=== PATIENT | male | born 1950 | race Caucasian/White ===

== ENCOUNTER → 2023-04-18 06:30 | Outpatient (REF) | payer MEDICARE, SELFPAY | LOC: MRI 06:30 | PROVIDERS: ATTENDING PHYSICIAN Neurological Surgery; FAMILY PHYSICIAN Family Medicine | DX: G95.9 Disease of spinal cord, unspecified (principal) | CPT/HCPCS: 72141; 72146 ==

== ENCOUNTER → 2023-06-09 08:16 | Outpatient (REF) | payer MEDICARE, SELFPAY | LOC: RAD 08:16 | PROVIDERS: ATTENDING PHYSICIAN Neurological Surgery; FAMILY PHYSICIAN Family Medicine | DX: Z98.1 Arthrodesis status (principal) | CPT/HCPCS: 72100 ==

== ENCOUNTER → 2023-07-21 08:26 | Outpatient (REF) | payer MEDICARE, SELFPAY | LOC: REG 08:26 | PROVIDERS: ATTENDING PHYSICIAN Neurological Surgery; FAMILY PHYSICIAN Family Medicine | DX: Z98.1 Arthrodesis status (principal) | CPT/HCPCS: 72110 ==

== ENCOUNTER → 2024-03-06 13:29 | Outpatient (REF) | payer MEDICARE, SELFPAY | LOC: HWRAD 13:29 | PROVIDERS: ATTENDING PHYSICIAN Neurological Surgery; FAMILY PHYSICIAN Internal Medicine | DX: Z98.1 Arthrodesis status (principal); M54.16 Radiculopathy, lumbar region; M54.50 Low back pain, unspecified | CPT/HCPCS: 72110; 72131 ==

== ENCOUNTER 2024-04-30 06:18 | Day surgery (SDC) | payer MEDICARE, SELFPAY | END 2024-04-30 09:35 | disposition home or self-care (01) | LOC: GI 06:18 | PROVIDERS: ATTENDING PHYSICIAN Specialist | DX: Z12.11 Encounter for screening for malignant neoplasm of colon (principal); D12.3 Benign neoplasm of transverse colon; K57.30 Diverticulosis of large intestine without perforation or abscess without bleeding; Z86.0101 Personal history of adenomatous and serrated colon polyps; Z80.0 Family history of malignant neoplasm of digestive organs | CPT/HCPCS: 45385; 88305 ==

== ENCOUNTER 2025-01-30 13:08 | Inpatient (IN) | payer MEDICARE, SELFPAY ==
[2025-01-30 09:22] LABS: Hematocrit 43.8 % (39.0-52.0); Hemoglobin 14.7 g/dL (13.0-18.0); Mean Corp Hgb Conc. 33.6 g/dL (33.0-37.0); Mean Corpuscular Volume 102.3 fL (80.0-94.0); Nucleated Red Blood Cells % 0 % (-); Platelet Count 268 10^3/uL (130-400); Red Cell Dist. Width 13.2 % (11.5-14.5)
[2025-01-30 09:34] LABS: ALT (SGPT) 35 U/L (0-50); AST (SGOT) 36 U/L (17-59); Albumin 4.7 g/dl (3.5-5.0); Alkaline Phosphatase 73 U/L (38-126); Blood Urea Nitrogen 17 mg/dl (9-20); Calcium 9.7 mg/dl (8.4-10.2); Carbon Dioxide 29 mmol/L (22-30); Chloride 102 mmol/L (98-107); Glucose 134 mg/dl (70-99); Potassium 4.6 mmol/L (3.5-5.1); Sodium 137 mmol/L (135-145); Total Protein 7.6 g/dl (6.3-8.2); eGFR > 60.00
[2025-01-30] MEDS: NSS 1000 IV ×3 (09:34→22:25)
[2025-01-30] MEDS: DILAUDID 0.5 MG IV (09:35)
[2025-01-30] MEDS: ZOFRAN 4 MG IV (09:35)
--- NOTE | 2025-01-30 09:37 | ED.GENMED ---
History of Present Illness
<Caterina Acevedo MD, Resident - Last Filed: 01/30/25 10:20>
General
Chief Complaint: Abdominal Pain
Source: patient
Time Seen by Provider: 01/30/25 09:05
History of Present Illness
History of Present Illness:
Patient is a 74-year-old male with past medical history of recurrent pancreatitis, alcohol use, hypertension, hyperlipidemia, depression, gout, who is here for evaluation of right upper quadrant pain.
He was in [place] 2 weeks ago, and was admitted to [facility] for acute pancreatitis, kept overnight and then discharge. Patient started on low-fat diet, exercise and abstain from alcohol for last 2 weeks. He did not have any further symptoms till
today. This morning around 530 to 6 AM he was in severe pain rating about 8/10, constant with intermittent sharp bouts, associated with nausea and ended up throwing up. He had couple of episodes of vomiting and he noticed bile. He reports losing
about 5 pounds over the last 2 weeks. Denies any fever, chills, chest pain, shortness of breath, irregular bowel habits, seizures, tremors.
His last drink was about 2 weeks ago, he feels fine without any tremulousness, seizures or delirium.
Past History
<Caterina Acevedo MD, Resident - Last Filed: 01/30/25 10:20>
Past History
ED Past Medical History: HTN, Psychiatric (Depression) and Other (Pancreatitis)
ED Past Surgical History: Other ([place] teeth, colonoscopy)
Social History
Tobacco: Non-smoker
Alcohol: None
Drug: None
Personal:
Living: with family
Employment: Employed
Family History
Family History: Hypertension
Review of Systems
<Caterina Acevedo MD, Resident - Last Filed: 01/30/25 10:20>
Review of Systems
All Other Systems: ROS reviewed and negative except as documented in HPI and ROS
Phy Exam
<Caterina Acevedo MD, Resident - Last Filed: 01/30/25 10:20>
General Physical Exam
General Presentation: well appearing and no apparent distress
General age: appears stated age
Cardiovascular Exam
Cardiovascular Exam: regular rate/rhythm, no edema, no gallop, no murmur and normal peripheral pulses
Pulmonary Exam
Pulmonary Exam: lungs clear, no respiratory distress and no rales
Gastrointestinal Exam
Gastrointestinal Exam: normal bowel sounds, soft and tender (In epigastric and right upper quadrant region)
Neurological Exam
Neurological Exam: alert and oriented x3
Musculoskeletal Exam
Musculoskeletal Exam: full ROM
Skin Exam
Skin Exam: normal color and warm/dry
Psychiatric Exam
Psychiatric Exam: normal mood/affect
Course
<Caterina Acevedo MD, Resident - Last Filed: 01/30/25 10:20>
Orders/Labs/Results
Orders:
Orders
01/30/25 09:11
Complete Blood Count/With Diff Urgent
Comprehensive Metabolic Panel Urgent
Lipase Urgent
01/30/25 09:30
US Abdomen Complete/Upper Urgent
Reason For Exam: RUQ pain
01/30/25 09:31
0.9% Sodium Chloride 1000 ml [Nss] 1,000 ml IV BOLUS
Ondansetron Injectable [Zofran] 4 mg IV NOW ONE
01/30/25 09:32
HYDROmorphone [Dilaudid] 0.5 mg IV NOW ONE
01/30/25 Lunch
NPO
Allow oral meds: No
Allow clear liquids: No
01/30/25 10:38
HYDROmorphone [Dilaudid] 1 mg IV NOW STA
Abnormal Lab Results
01/30/25
09:11
WBC 11.7 H 10^3/uL
(4.8-10.8)
RBC 4.28 L 10^6/uL
(4.70-6.10)
MCV 102.3 H fL
(80.0-94.0)
MCH 34.3 H pg
(27.0-31.0)
Absolute Neuts (auto) 8.7 H 10^3/uL
(1.4-6.5)
Absolute Monos (auto) 0.7 H 10^3/uL
(0.1-0.6)
Lymphocytes % 17.0 L %
(20.5-51.1)
Glucose 134 H mg/dl
(70-99)
Lipase > 4000 H* U/L
(23-300)
01/30/25 09:11
01/30/25 09:11
Vital Signs
Initial and Last Documented VS:
Initial Vital Signs
Temp Pulse Resp BP Pulse Ox
97.8 F 92 16 163/93 92
01/30/25 08:30 01/30/25 08:30 01/30/25 08:30 01/30/25 08:30 01/30/25 08:30
Last Documented Vital Signs
Temp Pulse Resp BP Pulse Ox
97.8 F 92 16 163/93 92
01/30/25 08:30 01/30/25 08:30 01/30/25 08:30 01/30/25 08:30 01/30/25 09:39
<Darshan Harrison, DO - Last Filed: 01/30/25 10:40>
Orders/Labs/Results
Orders:
Orders
01/30/25 09:11
Complete Blood Count/With Diff Urgent
Comprehensive Metabolic Panel Urgent
Lipase Urgent
01/30/25 09:30
US Abdomen Complete/Upper Urgent
Reason For Exam: RUQ pain
01/30/25 09:31
0.9% Sodium Chloride 1000 ml [Nss] 1,000 ml IV BOLUS
Ondansetron Injectable [Zofran] 4 mg IV NOW ONE
01/30/25 09:32
HYDROmorphone [Dilaudid] 0.5 mg IV NOW ONE
01/30/25 Lunch
NPO
Allow oral meds: No
Allow clear liquids: No
01/30/25 10:38
HYDROmorphone [Dilaudid] 1 mg IV NOW STA
Abnormal Lab Results
01/30/25
09:11
WBC 11.7 H 10^3/uL
(4.8-10.8)
RBC 4.28 L 10^6/uL
(4.70-6.10)
MCV 102.3 H fL
(80.0-94.0)
MCH 34.3 H pg
(27.0-31.0)
Absolute Neuts (auto) 8.7 H 10^3/uL
(1.4-6.5)
Absolute Monos (auto) 0.7 H 10^3/uL
(0.1-0.6)
Lymphocytes % 17.0 L %
(20.5-51.1)
Glucose 134 H mg/dl
(70-99)
Lipase > 4000 H* U/L
(23-300)
01/30/25 09:11
01/30/25 09:11
Vital Signs
Initial and Last Documented VS:
Initial Vital Signs
Temp Pulse Resp BP Pulse Ox
97.8 F 92 16 163/93 92
01/30/25 08:30 01/30/25 08:30 01/30/25 08:30 01/30/25 08:30 01/30/25 08:30
Last Documented Vital Signs
Temp Pulse Resp BP Pulse Ox
97.8 F 92 16 163/93 92
01/30/25 08:30 01/30/25 08:30 01/30/25 08:30 01/30/25 08:30 01/30/25 09:39
<Caterina Acevedo MD, Resident - Last Filed: 01/30/25 10:20>
MDM/Problems Addressed
Differential Diagnosis Includes:
Acute pancreatitis
Cholecystitis/cholelithiasis
Gastritis/GERD
Aortic dissection
Renal colic
MDM/Problems Addressed:
Given the patient is vitally stable and reports no tearing chest pain, less likely aortic dissection.
Recently discharged from [facility], after being diagnosed with acute pancreatitis, kept overnight, patient currently managing himself with low-fat diet, abstaining alcohol and exercise. High suspicion for recurrence of acute pancreatitis, lipase
checked greater than 4000, would admit for management of acute pancreatitis
Liver enzymes normal
Blood counts normal
Liver function normal
Would admit on hospitalist service for management of acute pancreatitis
<Caterina Acevedo MD, Resident - Last Filed: 01/30/25 10:20>
*Pulse Oximetry
SaO2: 92
Oxygen Mode of Delivery: Room air
Patient hypoxic: no
*Critical Care Note
Total Time (30-74mins, 75-104mins- exclusive of procedures): Not Applicable
ED Attending Note
<Caterina Acevedo MD, Resident - Last Filed: 01/30/25 10:20>
-
Portions of this chart may have been created with voice recognition software.� Occasional wrong word or��sound alike� substitutions may have occurred due to the inherent limitations of voice recognition software.
<Darshan Harrison, DO - Last Filed: 01/30/25 10:40>
ED Attending Note
Patient seen and examined by attending physician: Yes
I performed a history and physical exam of patient and discussed management with resident, I reviewed resident's note and agree with documented findings and plan of care.: Yes
ED Attending Note:
Seen with resident examined independently
74-year-old male drinker recurrent pancreatitis was in [place] recently with a spell after Thanksgiving
Labs noted no jaundice will require admission
Discharge Plan
Departure
Patient Disposition: Admit
Date of Disposition: 01/30/25
Time of Disposition: 10:19
Presentation/result/management discussed w/ accepting MD/DO: Hospitalist
Discharge Problem:
Acute pancreatitis
Prescriptions:
No Action
hydrochlorothiazide 25 MG tablet
25 mg PO DAILY
venlafaxine [Effexor XR] 37.5 MG capsule,extended release 24hr
37.5 mg PO DAILY
verapamil 240 MG tablet extended release
240 mg PO DAILY
fluticasone propionate 1 SPRAY spray,suspension
2 spray intranasal BIDPRN PRN (Reason: allergies)
omeprazole magnesium [Prilosec OTC] 20 MG tablet,delayed release (DR/EC)
20 mg PO DAILY
atorvastatin 20 MG tablet
20 mg PO DAILY
valsartan [Diovan] 320 MG tablet
320 mg PO DAILY
potassium chloride [Klor-Con M20] 20 MEQ tablet,ER particles/crystals
20 meq PO BID Qty: 60 0RF
Referrals:
Asim Samaniego MD [Family Provider, Internal Medicine]
Interventions
Interventions:
*Risk Screen - Suicide Last Done: 01/30/25 08:30
*General Assessment Last Done: 01/30/25 08:30
*Neglect/Abuse Screening Last Done: 01/30/25 08:30
QJ-Uepbuj-Aeysnfkqvc Assessment Last Done: 01/30/25 09:21
Discharge Date and Time
Print Language: SWEDISH
[2025-01-30 09:57] LABS: Lipase > 4000 U/L (23-300)
--- NOTE | 2025-01-30 10:34 | HPS.HSE ---
Family Physician
-
Family Physician: Asim Samaniego MD
Chief Complaint
-
Abd pain
History of Present Illness
74M recurrent pancreatitis ETOH use HTN HLD Depression Gout here for severe abd pain starting in AM. Lipase >4000. Likely pancreatitis. Patient was recently hospitalized for similar issue 2 weeks ago. Since discharge patient endorses abstaining
from Etoh and compliance with low fat diet. Denies strenuous activity beyond his regular exercise. Reports symptom free until this morning. Denies nausea vomiting constipation diarrhea. Abd US noted severe fatty liver disease but otherwise no
sonographic evidence cholelithiasis or biliary obstruction.
Medical History
Past Medical History
Past Medical History: Reports Other (as above)
Past Surgical History: Reports Other (as above)
Social History
Tobacco: Non-smoker
Alcohol: Former (reports abstaining from ETOH since hospitalization 2 weeks ago)
Drug: None
Personal:
Living: With Family
Family History
Family History: Not pertinent (reviewed)
Allergies / Home Medications
Allergies reflects when Allergies were last updated in [employer].
Home Medications with original date entered in [employer]
Allergy/Medication List:
Allergies
Allergy/AdvReac Type Severity Reaction Status Date / Time
Sulfa (Sulfonamide Allergy hives & Verified 01/30/25 08:30
Antibiotics) itching
dust, mites, grass, pollen Allergy Unknown Uncoded 01/30/25 08:30
pet dand
Home Medications
atorvastatin 20 mg tablet 20 mg PO DAILY 06/07/16
fluticasone propionate 50 mcg/actuation nasal spray,suspension 2 spray intranasal BIDPRN PRN allergies 06/07/16
venlafaxine 37.5 mg capsule,extended release 24 hr (Effexor XR) 37.5 mg PO DAILY 06/07/16
verapamil 240 mg tablet,extended release 240 mg PO DAILY 06/07/16
acetaminophen 325 mg tablet 650 mg PO Q4H PRN mild pain 01/30/25
allopurinol 300 mg tablet 300 mg PO DAILY 01/30/25
cholecalciferol (vitamin D3) 25 mcg (1,000 unit) tablet (Vitamin D3) 25 mcg PO DAILY 01/30/25
olmesartan 40 mg tablet 40 mg PO DAILY 01/30/25
omega 1-cjy-aur-fish oil 1,000 mg (120 mg-180 mg) capsule (Fish Oil) 1 cap PO DAILY 01/30/25
therapeutic multivitamin 1 tab PO DAILY 01/30/25
Review of Systems
-
A 12 point ROS was completed and negative except as noted: Yes
Constitutional: Reports Other (as below)
Physical Exam
Vital Signs
Vital Signs
Temp Pulse Resp BP Pulse Ox
97.8 F 92 16 163/93 92
01/30/25 08:30 01/30/25 08:30 01/30/25 08:30 01/30/25 08:30 01/30/25 09:39
Physical Exam
General: Other (as below)
Laboratory Results
-
01/30/25 09:11
01/30/25 09:11
Laboratory Results
Total Bilirubin 0.5 mg/dl (0.2-1.3) 01/30/25 09:11
AST 36 U/L (17-59) 01/30/25 09:11
ALT 35 U/L (0-50) 01/30/25 09:11
Alkaline Phosphatase 73 U/L (38-126) 01/30/25 09:11
Lipase > 4000 U/L (23-300) H* 01/30/25 09:11
Impression/Plan
-
ROS
General: Denies fever chills night sweats unexpected weight loss
Neuro: Denies seizure shaking loss of consciousness dizziness vertigo
Psych: denies depression hallucinations confusion manic episodes
Endocrine: Denies polyuria polydipsia polyphagia heat/cold intolerance
HEENT: Denies blindness visual disturbances epistaxis
Pulmonary: denies coughing hemoptysis sneezing sob dyspnea on exertion
Cardiovascular: denies chest pain palpitations leg swelling
Hematology: denies signs symptoms of anemia easy bruising/bleeding
Gastrointestinal: reports severe abdomen pain denies nausea vomiting diarrhea constipation hematemesis hematochezia melena
Genito-Urinary: denies retention incontinence dysuria
Musculoskeletal: denies joint pain weakness
Dermatology: denies rash laceration bruising
Physical Exam
General: No pallor, cyanosis, or jaundice.
HEENT: Throat clear. PERRLA Normocephalic atraumatic
NECK: Supple. No JVD Carotid Bruits
RESPIRATORY: Lungs clear to auscultation. No crackles wheezes stridor
CVS: S1, S2 normal. RRR. No murmur, rub or gallop.
ABDOMEN: Soft, epigastric tenderness. No rebound tenderness. No distension. decreased bowel sounds
EXTREMITIES: No peripheral cyanosis or edema.
INTERCHANGE AGENT: AOx3. No focal deficits.
IMPRESSION:
74M recurrent pancreatitis ETOH use HTN HLD Depression Gout here for severe abd pain starting in AM. Lipase >4000. Likely pancreatitis. Patient was recently hospitalized for similar issue 2 weeks ago. Since discharge patient endorses abstaining
from Etoh and compliance with low fat diet. Denies strenuous activity beyond his regular exercise. Reports symptom free until this morning. Denies nausea vomiting constipation diarrhea. Abd US noted severe fatty liver disease but otherwise no
sonographic evidence cholelithiasis or biliary obstruction.
PLAN:
#Recurrent Pancreatitis
#Hx ETOH use (endorses abstaining since last hospitalization 2 wks ago)
Medsurg admit
IVF hydration 120 cc/h NS
trend Lipase
pain control prn Tylenol, prn Diaudid mod severe pain
NPO except meds, sips of clears, ice chips
GI eval
#HTN
Cont Olmesartan Verapamil with holding parameters
#HLD
cont Statin
#Depression
cont Effexor
#Gout
cont Allopurinol
DVT ppx Lovenox
Full Code
Discussed with patient and patient's Naida
I spent a total of 76 minutes with the patient or on the floor. More than 50% of this time involved counseling and coordination of care.
[2025-01-30] MEDS: DILAUDID 1 MG IV ×3 (10:52→19:49)
--- NOTE | 2025-01-30 15:33 | PTCARENOTE ---
Received pt from ER via stretcher, accompanied by ER staff. Pt AAO x3, BRIGHT well, ambulatory to bed without assistance;d enies weakness/dizziness. VSS. On room air- pulse ox 100%, no SOB noted. Abd large, rounded, pt c/o shapr mid-upper abd [place];
denies nausea. Pt to be NPO except for meds/sips clears/ice chips. Temp 99.1 PO; skin W/D/I. IVF's NSS @ 120 ml/hr started via Rt AC site; currently infusing well without sx of infiltration. resting in bed at present; at bedside. Will
continue to monitor.
--- NOTE | 2025-01-30 16:12 | CON.GI ---
Consultation
-
Date/Time Consultation Requested: 01-30-25
Date/Time Consultation Performed: 01-30-25
Requesting Provider: Dr. Stephenie Burrell
Performing Provider: Dr. Anna Woodall
Reason for Consultation: Pancreatitis
Medical History
Chief Complaint / HPI
Chief Complaint: Pancreatitis
History of Present Illness:
Pino Torrez, 74-year-old with medical history significant for recurrent pancreatitis and frequent alcohol use, was admitted to [facility] on 01-30-25 with acute pancreatitis. He has a history of recurrent pancreatitis with multiple admissions, starting
from the 1970s. He was admitted to [facility] for acute pancreatitis around 2 weeks ago, and was discharged home a day later on his request as he wanted to return to [place]. Leading up to that, he was drinking slightly more than usual - about
half a bottle of red wine 4 days a week. He has been abstaining from alcohol completely since he was discharged home 2 weeks ago, and had been mostly asymptomatic (outside of infrequent mild abdominal pain) until today when he developed abdominal
pain, nausea, vomiting and inability to tolerate solids or liquids. WBC 11.7 and lipase >4000 on admission.
Past Medical History
Past Medical History: Other (recurrent pancreatitis; history of almost daily alcohol use; hypertension, hyperlipidemia; gout)
Social History
Tobacco: Non-Smoker
Alcohol: Former (quit 02/12)
Drug: None
Living: With Family
Family History
Family History: Reviewed & Not Pertinent
Allergies / Home Medications
Allergy/AdvReac Type Severity Reaction Status Date / Time
Sulfa (Sulfonamide Allergy hives & Verified 01/30/25 08:30
Antibiotics) itching
dust, mites, grass, pollen Allergy Unknown Uncoded 01/30/25 14:39
pet dand
�Medication �Instructions �Recorded
atorvastatin 20 mg tablet 20 mg PO DAILY 06/07/16
fluticasone propionate 50 2 spray intranasal BIDPRN PRN 06/07/16
mcg/actuation nasal allergies
spray,suspension
venlafaxine 37.5 mg 37.5 mg PO DAILY 06/07/16
capsule,extended release 24 hr
(Effexor XR)
verapamil 240 mg tablet,extended 240 mg PO DAILY 06/07/16
release
acetaminophen 325 mg tablet 650 mg PO Q4H PRN mild pain 01/30/25
allopurinol 300 mg tablet 300 mg PO DAILY 01/30/25
cholecalciferol (vitamin D3) 25 25 mcg PO DAILY 01/30/25
mcg (1,000 unit) tablet (Vitamin
D3)
olmesartan 40 mg tablet 40 mg PO DAILY 01/30/25
omega 7-hsz-juj-fish oil 1,000 mg 1 cap PO DAILY 01/30/25
(120 mg-180 mg) capsule (Fish Oil)
therapeutic multivitamin 1 tab PO DAILY 01/30/25
Review of Systems
-
All other systems: A 12 pt ROS was Negative except as stated above in HPI
Vital Signs
Temp Pulse Resp BP Pulse Ox
98.6 F 61 18 112/54 95
01/30/25 15:53 01/30/25 15:53 01/30/25 15:53 01/30/25 15:53 01/30/25 15:53
Physical Exam
Exam
General: No Apparent Distress and Comfortable
HEENT: Normocephalic, Anicteric and Atraumatic
Respiratory: Clear and Non Labored Respirations
Cardiac: S1/S2 and Regular Rhythm; Negative Murmur or Rub
GI: Soft, Non Distended and Tender (epigastric/LUQ)
Genito-urinary: No Costovertebral Tender
Musculoskeletal: No Clubbing, No Cyanosis and No Edema
Neuro: Awake, Alert, Oriented and No Motor Deficits
Psych: Calm
Results
WBC 11.7 10^3/uL (4.8-10.8) H 01/30/25 09:11
Hgb 14.7 g/dL (13.0-18.0) 01/30/25 09:11
Hct 43.8 % (39.0-52.0) 01/30/25 09:11
MCV 102.3 fL (80.0-94.0) H 01/30/25 09:11
Plt Count 268 10^3/uL (130-400) 01/30/25 09:11
Absolute Neuts (auto) 8.7 10^3/uL (1.4-6.5) H 01/30/25 09:11
Sodium 137 mmol/L (135-145) 01/30/25 09:11
Potassium 4.6 mmol/L (3.5-5.1) 01/30/25 09:11
Chloride 102 mmol/L (98-107) 01/30/25 09:11
Carbon Dioxide 29 mmol/L (22-30) 01/30/25 09:11
BUN 17 mg/dl (9-20) 01/30/25 09:11
Creatinine 1.1 mg/dL (0.7-1.3) 01/30/25 09:11
Calcium 9.7 mg/dl (8.4-10.2) 01/30/25 09:11
Total Bilirubin 0.5 mg/dl (0.2-1.3) 01/30/25 09:11
AST 36 U/L (17-59) 01/30/25 09:11
ALT 35 U/L (0-50) 01/30/25 09:11
Alkaline Phosphatase 73 U/L (38-126) 01/30/25 09:11
Lipase > 4000 U/L (23-300) H* 01/30/25 09:11
Diagnostic Image Results:
06-07-16: CT AP:
1: Pancreatitis. Moderate to severe inflammatory enlargement of the pancreas and lillie-pancreas retroperitoneal inflammation and effusion. No walled off fluid collection
2. No other acute disease in the abdomen
3. Chronic: No radiopaque biliary stones. Mild fatty infiltration of the liver. Severe aortoiliac atherosclerotic calcification
01-30-25: US Abdomen:
1. Severely increased echogenicity throughout the liver consistent with severe diffuse liver disease (probably SEVERE DIFFUSE HEPATIC STEATOSIS).
2. No sonographic evidence for cholelithiasis or biliary obstruction.
3. Severe calcific atherosclerotic plaque in the abdominal aorta.
Prior GI Procedures:
Colonoscopy:
04-30-24: - One 3 mm polyp in the transverse colon, removed with
a cold snare. Resected and retrieved.
- Diverticulosis in the sigmoid colon and in the
descending colon.
Assessment / Plan
-
Pino Torrez, 74-year-old with medical history significant for recurrent pancreatitis and frequent alcohol use, was admitted to [facility] on 01-30-25 with acute pancreatitis. He has a history of recurrent pancreatitis with multiple admissions, starting
from the 1970s. He was admitted to [facility] for acute pancreatitis around 2 weeks ago, and was discharged home a day later on his request as he wanted to return to [place]. Leading up to that, he was drinking slightly more than usual - about
half a bottle of red wine 4 days a week. He has been abstaining from alcohol completely since he was discharged home 2 weeks ago, and had been mostly asymptomatic (outside of infrequent mild abdominal pain) until today when he developed abdominal
pain, nausea, vomiting and inability to tolerate solids or liquids. WBC 11.7 and lipase >4000 on admission.
Impression:
* Acute pancreatitis, history of recurrent pancreatitis
* History of alcohol use, abstaining since 02/12
* Hypertension
* Hyperlipidemia
* Depression
* Gout
Recommendations:
- Suspect pancreatitis secondary to chronic almost daily alcohol use.
- Advance diet as tolerated; can transition to oral intake; IV hydration if not tolerating.
- Check MRCP.
- Check IgG subclass 1-4, triglycerides, CRP.
- Analgesics and antiemetics as needed.
-
-
Thank you for consultation and allowing me to participate in the patient's care. Please call the telephone operator chief GI physician during the after hours with any questions or concerns.
[2025-01-30 17:50] LABS: C-Reactive Protein < 5.00 mg/L (0.0-10.00)
[2025-01-30] MEDS: LOVENOX 40 MG SC (17:51)
[2025-01-30] MEDS: TYLENOL 650 MG PO (22:32)
[2025-01-31] MEDS: DILAUDID 1 MG IV ×2 (00:21→13:10)
[2025-01-31] MEDS: ZOFRAN 4 MG IV (00:21)
[2025-01-31] MEDS: TYLENOL 650 MG PO ×2 (03:39→23:40)
[2025-01-31] MEDS: DILAUDID 0.5 MG IV ×3 (04:41→18:36)
[2025-01-31] MEDS: NSS 1000 IV ×2 (06:17→17:28)
--- NOTE | 2025-01-31 07:47 | W.PN.HOSP.TC ---
Today's Communication/Plan
-
IVF
clear liquid diet
pain control
Assessment / Plan
Assessment / Plan
Physical Exam
General: No pallor, cyanosis, or jaundice.
HEENT: Throat clear. PERRLA Normocephalic atraumatic
NECK: Supple. No JVD Carotid Bruits
RESPIRATORY: Lungs clear to auscultation. No crackles wheezes stridor
CVS: S1, S2 normal. RRR. No murmur, rub or gallop.
ABDOMEN: Soft, epigastric tenderness. No rebound tenderness. No distension. decreased bowel sounds
EXTREMITIES: No peripheral cyanosis or edema.
EPIC CUPID ANALYST: AOx3. No focal deficits.
IMPRESSION:
74M recurrent pancreatitis ETOH use HTN HLD Depression Gout here for severe abd pain starting in AM. Lipase >4000. Likely pancreatitis. Patient was recently hospitalized for similar issue 2 weeks ago. Since discharge patient endorses abstaining
from Etoh and compliance with low fat diet. Denies strenuous activity beyond his regular exercise. Reports symptom free until this morning. Denies nausea vomiting constipation diarrhea. Abd US noted severe fatty liver disease but otherwise no
sonographic evidence cholelithiasis or biliary obstruction.
PLAN:
#Recurrent Pancreatitis
#Hx ETOH use (endorses abstaining since last hospitalization 2 wks ago)
Medsurg admit
IVF hydration 120 cc/h NS
trend Lipase
pain control prn Tylenol, prn Diaudid mod severe pain
GI eval appreciated
Clear Liquid Diet
MRI/MRCP appreciated acute interstitial edematous pancreatitis, pancreatic divisum, no cholelithiasis or choledocholithiasis, severe hepatic steatosis
#HTN
Cont Cozaar (substituted for home Olmesartan while in hospital) Verapamil with holding parameters
#HLD
cont Statin
#Depression
cont Effexor
#Gout
cont Allopurinol
DVT ppx Lovenox
Full Code
Discussed with patient and patient's Naida
I spent a total of 45 minutes with the patient or on the floor. More than 50% of this time involved counseling and coordination of care.
Anticipated Discharge: 24 - 48 hours
Subjective/Interval History
-
Date of Service: January 31, 2025
no acute distress, resting comfortably in bed, reports improvement in pain/appetite. Naida present during evaluation.
Objective Data
-
Labs:
Laboratory Results
01/31/25
06:00
WBC Pending
Hgb Pending
Hct Pending
Plt Count Pending
Sodium Pending
Potassium Pending
Chloride Pending
Carbon Dioxide Pending
BUN Pending
Creatinine Pending
Glucose Pending
Calcium Pending
Total Bilirubin Pending
AST Pending
ALT Pending
Alkaline Phosphatase Pending
Vital Signs:
Vital Signs
Temp Pulse Resp BP Pulse Ox
97.4 F 74 15 138/61 96
01/30/25 23:38 01/30/25 23:38 01/30/25 23:38 01/30/25 23:38 01/30/25 23:38
I&O
01/30/25 01/31/25 02/01/25
06:59 06:59 06:59
Intake Total 2360 / 2360
Balance 2360 / 2360
[2025-01-31] MEDS: NSS (PRESERVATIVE FREE) 10 ML IV (08:54)
[2025-01-31] MEDS: PROTONIX IV 40 MG IV (08:54)
[2025-01-31] MEDS: VITAMIN D3 (cholecalciferol) 25 MCG PO (08:55)
[2025-01-31] MEDS: COZAAR 100 MG PO (08:55)
[2025-01-31] MEDS: CALAN EXTENDED RELEASE 240 MG PO (08:55)
[2025-01-31] MEDS: LIPITOR 20 MG PO (08:56)
[2025-01-31] MEDS: THERAGRAN 1 TABLET PO (08:56)
[2025-01-31] MEDS: EFFEXOR XR 37.5 MG PO (08:56)
[2025-01-31] MEDS: ZYLOPRIM 300 MG PO (08:58)
--- NOTE | 2025-01-31 09:51 | W.PN.GI.CBS2 ---
Today's Communication / Plan
-
Clinically improving, advance diet as tolerated. MRCP pending. OP f/u with Dr. Lauren. Etoh abstinence. GI will sign off, please call with questions
Assessment / Plan
-
Pino Torrez is a 74 y.o. male with pmhx HTN, HLD, depression, gout, recurrent pancreatitis admitted with pancreatitis. Reports waiting up early this morning with severe abdominal pain, epigastric in nature with associated nausea and bilious
nonbloody emesis. He states he was last hospitalized in [place] 2 weeks ago with acute pancreatitis, discharged after 1 day. His first episode of AP was in his 20s, approximates a total of 8 episodes in his lifetime, states no clear etiology of his
pancreatitis has ever been found. He believes the last MRI of his abdomen was about 8 years ago. He is a former tobacco smoker, 45 pack years, quit at age 61. He does to regular etoh use, typically1/2 bottle of wine about 4 days per week. He admits
to slightly more consumption prior to recent bouts of pancreatitis.No recent change in medications, antibiotics, GLPs.
Lipase >4000
Tbili 0.5, AST 36, ALT 35, Alk phos 73
BUN 17
Hgb 14.7, MCV 102.3, Plt 268
Abdominal ultrasound: Severely increased echogenicity throughout the liver consistent with severe diffuse hepatic steatosis. No sonographic evidence of cholelithiasis or biliary obstruction. The CBD measures 3.8 mm. Severe calcific
atherosclerotic plaque in the abdominal aorta. Patent hepatic vasculature The pancreas is incompletely visualized, the pancreatic duct measures 3.4 mm in diameter.
#Recurrent Pancreatitis, suspect etoh-pancreatitis
-He does drink etoh daily, not excessive but regular use, so this could be culprit, no evidence of chronic panc on imaging
-Currently getting NS @ 120 cc/hr, monitor BUN closely; d/c fluids once tolerating diet
-analgesia, antiemetics prn
-PPI
-tolerating clears, advance as tolerated
-MRI/MRCP pending
-triglycerides, IgG4 pending
Continue medical management for treatment of acute pancreatitis, overall, he is improving. MRI for completeness. Advance diet as tolerated. Recommend abstaining for etoh completely moving forward. He can f/u in office with Dr. Lauren, can discuss if
additional workup for his recurrent pancreatitis is necessary. GI will sign off, will f/u on MRI results. Please call with questions.
Subjective
Subjective
Date of Service: January 31, 2025
Patient all improved on exam today. MRI pending. On further eval, he admits to heavy drinking, a bottle of wine daily for about 2 years, cut back a few years ago to half a bottle of wine 4 to 7 days/week. Suspect this is the etiology of his
pancreatitis, he agrees this is certainly a possibility.
Objective
Data Reviewed
Laboratory Data:
Laboratory Results
Total Bilirubin 0.5 mg/dl (0.2-1.3) 01/30/25 09:11
AST 36 U/L (17-59) 01/30/25 09:11
ALT 35 U/L (0-50) 01/30/25 09:11
Alkaline Phosphatase 73 U/L (38-126) 01/30/25 09:11
Lipase > 4000 U/L (23-300) H* 01/30/25 09:11
Vital Signs and I&O:
Vital Signs
Temp Pulse Resp BP Pulse Ox
98.6 F 72 18 113/56 96
01/31/25 07:40 01/31/25 08:55 01/31/25 07:40 01/31/25 08:55 01/31/25 07:40
I&O
01/30/25 01/31/25 02/01/25
06:59 06:59 06:59
Intake Total 2360 / 2360
Balance 2360 / 2360
Physical Exam
Physical Exam
HEENT: Anicteric and Moist mucous membranes
GI: Soft, Non Distended and Tender (minimal TTP in epigastrium, no rebound or guarding)
[2025-01-31 09:52] LABS: Hematocrit 35.3 % (39.0-52.0); Hemoglobin 11.9 g/dL (13.0-18.0); Mean Corp Hgb Conc. 33.7 g/dL (33.0-37.0); Mean Corpuscular Volume 104.1 fL (80.0-94.0); Nucleated Red Blood Cells % 0 % (-); Platelet Count 201 10^3/uL (130-400); Red Cell Dist. Width 13.3 % (11.5-14.5)
[2025-01-31 10:15] LABS: ALT (SGPT) 24 U/L (0-50); AST (SGOT) 26 U/L (17-59); Albumin 3.5 g/dl (3.5-5.0); Alkaline Phosphatase 60 U/L (38-126); Blood Urea Nitrogen 13 mg/dl (9-20); Calcium 8.4 mg/dl (8.4-10.2); Carbon Dioxide 26 mmol/L (22-30); Chloride 104 mmol/L (98-107); Estimated Creatinine Clearance 74 ml/min; Glucose 93 mg/dl (70-99); Magnesium 2.0 mg/dl (1.6-2.3); Potassium 3.8 mmol/L (3.5-5.1); Sodium 134 mmol/L (135-145); Total Protein 5.8 g/dl (6.3-8.2); Triglycerides 129 mg/dl (10-149); eGFR > 60.00
[2025-01-31 12:04] LABS: Hepatitis C Antibody Negative (Negative)
[2025-01-31 13:36] LABS: Lipase > 4000 U/L (23-300)
[2025-01-31] MEDS: LOVENOX 40 MG SC (17:27)
[2025-02-01] MEDS: NSS 1000 IV ×2 (01:37→09:35)
--- NOTE | 2025-02-01 07:19 | W.PN.HOSP.TC ---
Today's Communication/Plan
-
Ok to discharge if tolerates low fat dinner
Assessment / Plan
Assessment / Plan
Physical Exam
General: No pallor, cyanosis, or jaundice.
HEENT: Throat clear. PERRLA Normocephalic atraumatic
NECK: Supple. No JVD Carotid Bruits
RESPIRATORY: Lungs clear to auscultation. No crackles wheezes stridor
CVS: S1, S2 normal. RRR. No murmur, rub or gallop.
ABDOMEN: Soft, epigastric tenderness significantly improved. No rebound tenderness. No distension. decreased bowel sounds
EXTREMITIES: No peripheral cyanosis or edema.
FUNERAL PROFESSIONAL: AOx3 conversant coherent
Psych: Calm
IMPRESSION:
74M recurrent pancreatitis ETOH use HTN HLD Depression Gout here for severe abd pain starting in AM. Lipase >4000. Likely pancreatitis. Patient was recently hospitalized for similar issue 2 weeks ago. Since discharge patient endorses abstaining
from Etoh and compliance with low fat diet. Denies strenuous activity beyond his regular exercise. Reports symptom free until this morning. Denies nausea vomiting constipation diarrhea. Abd US noted severe fatty liver disease but otherwise no
sonographic evidence cholelithiasis or biliary obstruction.
PLAN:
#Recurrent Pancreatitis
#Hx ETOH use (endorses abstaining since last hospitalization 2 wks ago)
Medsurg admit
Lipase trended down <1000
IVF hydration 120 cc/h NS completed
pain significantly improved, no longer requiring Dilaudid, manageable w/ Tylenol
GI eval appreciated
Clear Liquid Diet tolerated, advanced to low fat, if tolerating ok to discharge.
MRI/MRCP appreciated acute interstitial edematous pancreatitis, pancreatic divisum, no cholelithiasis or choledocholithiasis, severe hepatic steatosis
#HTN
Cont Cozaar (substituted for home Olmesartan while in hospital) Verapamil with holding parameters
#HLD
cont Statin
#Depression
cont Effexor
#Gout
cont Allopurinol
DVT ppx Lovenox
Full Code
If tolerates Low fat dinner, medically stable for discharge home with outpatient follow up recommendations.
Discussed with patient and patient's Naida
Total Time Preparing Discharge __40 minutes including examination of the patient, summary of the hospital stay, instructions for continuing care to all relevant caregivers; and preparation of discharge records, prescriptions, and referral
forms if necessary.
Anticipated Discharge: Today
Subjective/Interval History
-
Date of Service: February 01, 2025
no acute distress, sitting up comfortably in bed. Reports significant improvement in pain, manageable with Tylenol, has not required dilaudid today. Tolerating Clear Liquid Diet. Looking forward to advancing diet and going home. Naida
present during evaluation.
Objective Data
-
Labs:
Laboratory Results
02/01/25
06:00
WBC Pending
Hgb Pending
Hct Pending
Plt Count Pending
Sodium Pending
Potassium Pending
Chloride Pending
Carbon Dioxide Pending
BUN Pending
Creatinine Pending
Glucose Pending
Calcium Pending
Vital Signs:
Vital Signs
Temp Pulse Resp BP Pulse Ox
98.6 F 74 18 109/57 98
02/01/25 03:28 01/31/25 23:15 01/31/25 23:15 01/31/25 23:15 01/31/25 23:15
I&O
01/31/25 02/01/25 02/02/25
06:59 06:59 06:59
Intake Total 2360 / 2360 2560 / 2560
Balance 2360 / 2360 2560 / 2560
[2025-02-01 08:31] LABS: Hematocrit 35.0 % (39.0-52.0); Hemoglobin 11.6 g/dL (13.0-18.0); Mean Corp Hgb Conc. 33.1 g/dL (33.0-37.0); Mean Corpuscular Volume 105.4 fL (80.0-94.0); Platelet Count 186 10^3/uL (130-400); Red Cell Dist. Width 13.3 % (11.5-14.5)
[2025-02-01 08:55] LABS: Blood Urea Nitrogen 9 mg/dl (9-20); Calcium 8.5 mg/dl (8.4-10.2); Carbon Dioxide 25 mmol/L (22-30); Chloride 105 mmol/L (98-107); Estimated Creatinine Clearance 74 ml/min; Glucose 84 mg/dl (70-99); Lipase 809 U/L (23-300); Magnesium 1.9 mg/dl (1.6-2.3); Potassium 3.8 mmol/L (3.5-5.1); Sodium 136 mmol/L (135-145); eGFR > 60.00
[2025-02-01] MEDS: CALAN EXTENDED RELEASE 240 MG PO (09:23)
[2025-02-01] MEDS: COZAAR 100 MG PO (09:24)
[2025-02-01] MEDS: VITAMIN D3 (cholecalciferol) 25 MCG PO (09:24)
[2025-02-01] MEDS: ZYLOPRIM 300 MG PO (09:24)
[2025-02-01] MEDS: PROTONIX IV 40 MG IV (09:24)
[2025-02-01] MEDS: EFFEXOR XR 37.5 MG PO (09:24)
[2025-02-01] MEDS: LIPITOR 20 MG PO (09:24)
[2025-02-01] MEDS: NSS (PRESERVATIVE FREE) 10 ML IV (09:24)
[2025-02-01] MEDS: THERAGRAN 1 TABLET PO (09:24)
[2025-02-01] MEDS: TYLENOL 650 MG PO (09:37)
--- NOTE | 2025-02-01 12:35 | CM ---
CM met with pt and spouse bedside
They reside in a 2SH with 3STE, full flight to 2nd floor
Pt is indep at baseline, no ADs
Has his home cpap bedside
Denies financial insecurities, Rx coverage through [facility] A[employer] plan
PCP- Aism Aden
Rx- [facility]
Discharge Disposition- anticipate home no needs
--- NOTE | 2025-02-01 16:47 | W.DCSUMMARY ---
Discharge Summary
Discharge Data
Date of Admission: 01/30/25
Date of Discharge: 02/01/25
-
Pending Results: No
Discharge Plan
-
Patient Disposition: Home (Routine Discharge)
Discharge Diagnosis/Procedures: Recurrent Pancreatitis
Pancreatic divisum
Fatty Liver Disease
Hypertension
Hyperlipidemia
Depression
Gout
Condition: Fair
Diet: Low Fat
Activity: As tolerated
Driving Restrictions: As prior to admission
Bathing Restrictions: None
Activity Restrictions/Additional Instructions:
Follow up with primary care provider in 1 week of discharge and GI in 2-4 weeks of discharge.
Avoid alcohol and/or fatty foods as these will likely lead to reoccurence of symptoms, worsening of your overall condition, and increase your risk of morbidity/mortality.
Referrals:
Asim Samaniego MD [Family Provider, Internal Medicine] - in one week
Grant Lauren MD [Active, Gastroenterology] - in two to four weeks
Prescriptions:
Continued
venlafaxine [Effexor XR] 37.5 MG capsule,extended release 24hr
37.5 mg PO DAILY
verapamil 240 MG tablet extended release
240 mg PO DAILY
fluticasone propionate 1 SPRAY spray,suspension
2 spray intranasal BIDPRN PRN (Reason: allergies)
atorvastatin 20 MG tablet
20 mg PO DAILY
acetaminophen 325 mg Tablet
650 mg PO Q4H PRN (Reason: mild pain)
therapeutic multivitamin Tablet
1 tab PO DAILY
allopurinol 300 mg Tablet
300 mg PO DAILY
olmesartan 40 mg Tablet
40 mg PO DAILY
cholecalciferol (vitamin D3) [Vitamin D3] 25 mcg (1,000 unit) Tablet
25 mcg PO DAILY
omega 2-ctc-rhx-fish oil [Fish Oil] 1,000 (120-180) mg Capsule
1 cap PO DAILY
loratadine [Claritin] 10 mg Tablet
10 mg PO DAILY PRN (Reason: allergies)
fluticasone propionate 50 mcg/actuation [place],Suspension
1 spray INTRANASAL DAILY PRN (Reason: allergies)
Discharge Orders:
Discharge Patient (As Directed); Ordered 02/01/25
Ordered By: Stephenie Burrell
Discharge Date and Time
Print Language: FAROESE
== END 2025-02-01 17:58 | disposition home or self-care (01) | DRG 439 ==
LOC: 4 EAST ACU 13:08
PROVIDERS: ADMITTING PHYSICIAN Internal Medicine; CONSULT PHYSICIAN Internal Medicine; EMERGENCY PHYSICIAN Emergency Medicine; FAMILY PHYSICIAN Internal Medicine
PROC: 5A09357 Assistance with Respiratory Ventilation, Less than 24 Consecutive Hours, Continuous Positive Airway Pressure (ICD-10-PCS; 2025-01-30)
DX: K86.1 Other chronic pancreatitis (principal); Q45.3 Other congenital malformations of pancreas and pancreatic duct; K76.0 Fatty (change of) liver, not elsewhere classified; I10 Essential (primary) hypertension; E78.5 Hyperlipidemia, unspecified; F32.A Depression, unspecified; Z88.2 Allergy status to sulfonamides; K57.30 Diverticulosis of large intestine without perforation or abscess without bleeding; Z79.899 Other long term (current) drug therapy
CPT/HCPCS: 74183; 76700; 80048; 80053; 82787; 83690; 83735; 84100; 84478; 85025; 85027; 86140; 86803; 93005; 94660; 96361; 96374; 96375; 96376; 99285; A9575